=== PATIENT | female | born 1985 | race Caucasian/White ===

== ENCOUNTER 2016-06-28 20:36 | Emergency (ER) | payer SELFPAY ==
[2016-06-28 20:48] VITALS: BP 116/73; PULSE 74; RESP 18; TEMP 98.1; O2SAT 99
--- NOTE | 2016-06-28 20:52 | EDPHY ---
H & P Stated Complaint: "electric shock" from sacrum upward w/ subsequent syncope & fall Time Seen by Provider: 06/28/16 20:52 - Personal History LMP (Females 10-55): Over 28 Days Ago Current Tetanus/Diphtheria Vaccine: Unsure Current Tetanus Diphtheria and Acellular Pertussis (TDAP): Unsure - Medical/Surgical History Hx Asthma: No Hx Chronic Respiratory Disease: No Hx Diabetes: No Hx Cardiac Disease: No Hx Renal Disease: No Hx Cirrhosis: No Hx Alcoholism: No Hx HIV/AIDS: No Hx Splenectomy or Spleen Trauma: No Other PMH: appendectomy - Social History Smoking Status: Never smoked Constitutional: Initial Vital Signs Temperature (C) 36.7 C 06/28/16 20:42 Heart Rate 74 06/28/16 20:42 Respiratory Rate 18 06/28/16 20:42 Blood Pressure 116/73 06/28/16 20:42 O2 Sat (%) 99 06/28/16 20:42 O2 Delivery Mode Room Air Allergies/Adverse Reactions: No Known Allergies Allergy (Unverified 06/28/16 20:49) Home Medications: Medication Instructions Recorded NK [No Known Home Meds] 06/28/16 Medical Decision Making ED Course/Re-evaluation: CHIEF COMPLAINT: Back pain, syncope HISTORY OF PRESENT ILLNESS: This patient is a 31 year old female who presents to the Emergency Department following an episode of back pain-induced syncope this evening. She was at a meditation class sitting cross-legged on the floor when she felt an "electrical shock" radiating superiorly from her sacrum toward her skull. Following the brief sensation, she walked over to a chair and sat down; she then felt acutely lightheaded and woke up on the floor. Upon arrival, she complains of right-sided back and right-sided neck pain. She denies headache , lightheadedness, chest pain, cough, or shortness of breath. Medical history includes chronic hypotension and one prior episode of vasovagal syncope. REVIEW OF SYSTEMS: A 10 point review of systems was performed and is negative with the exception of the elements mentioned in the history of present illness. PHYSICAL EXAM: HR 74, BP 116/73, O2 Sat 94%, RR 18. Temp noted General Appearance: Alert, well hydrated, appropriate, and non-toxic appearing. Head: Atraumatic without scalp tenderness or obvious injury Eyes: Pupils equal, round, reactive to light and accommodation, EOMI, no trauma , no injection. Ears: Clear bilaterally, no perforation, normal landmarks Nose: Atraumatic, no rhinorrhea, clear. Throat: There is no erythema or exudates, no lesions, normal tonsils, mucus membranes moist. Neck: Supple, 2+ carotid upstroke, nontender, no lymphadenopathy. Respiratory: No retractions, no distress, no wheezes, and no accessory muscle use. Lungs are clear to auscultation bilaterally. Cardiovascular: Regular rate and rhythm, no murmurs, rubs, or gallops. Bilateral carotid, radial, dorsalis pedis, and posterior tibial pulses intact. Good capillary refill all extremities. Gastrointestinal: Abdomen is soft, nontender, non-distended, no masses, no rebound, no guarding, no peritoneal signs. Musculoskeletal: Normal active ROM of all extremities, atraumatic. Neurological: Alert, appropriate, and interactive. The patient has normal DTRs and non-focal cranial nerves, motor, sensory, and cerebellar exam. Skin: No rashes, good turgor, no nodules on palpation. Past medical history: Hypotension. Past surgical history: Appendectomy. Family history: Non-contributory. Social history: Single. Non-smoker. DIFFERENTIAL DIAGNOSIS: Differential diagnosis for the patient's back and neck pain includes but is not limited to: spontaneous pneumothorax, cervical strain, or other musculoskeletal pain. MEDICAL DECISION MAKING: This patient is a normally healthy woman who presents following an episode of what appears to be neuropathic pain secondary to chronic intermittent musculoskeletal back and neck pain inducing a syncopal episode while at meditation class this evening. Her exam is largely benign. She has no midline tenderness. Lungs are clear to auscultation; there is no evidence of pneumothorax. I discussed with the patient my recommendation to proceed with x-ray of the lumbar and cervical spine and chest. She declines imaging at this time and will follow-up as an outpatient when her new insurance begins in July. I am comfortable with this. She will be given customary return precautions and discharged home in good condition. Departure - Departure Disposition: Home, Routine, Self-Care Clinical Impression: Cervical pain Lumbar back pain Qualifiers: Chronicity: acute Back pain laterality: right Sciatica presence: without sciatica Qualified Code(s): M54.5 - Low back pain Syncope Qualifiers: Syncope type: vasovagal syncope Qualified Code(s): R55 - Syncope and collapse Condition: Good Instructions: Syncope (ED), Acute Low Back Pain (ED), Neck Pain (ED) Additional Instructions: 1. Schedule a follow-up appointment with your primary care provider in July to address your back and neck pain. 2. Return to the Emergency Department if you experience worsening pain, difficulty breathing, chest pain, or other serious concerns. Referrals: Deloris Allen MD [Medical Doctor] - As per Instructions Report Scribed for: Charanjit Senior Report Scribed by: Maryellen Dong Date of Report: 06/28/16 Time of Report: 20:53
== END 2016-06-28 21:21 | disposition home or self-care (01) ==
DX: R55 Syncope and collapse (principal); M54.2 Cervicalgia; M54.5 Low back pain